=== PATIENT | male | born 1970 | race Caucasian/White ===

== ENCOUNTER 2021-10-03 10:51 | Emergency (ER) | payer SELFPAY ==
[~2021-10-03] VITALS: Ht 167.6 cm; Wt 67.6 kg
[2021-10-03 10:55] VITALS: BP 144/77
--- NOTE | 2021-10-03 11:10 | NUR ---
PT TAKEN TO XR VIA W/C.
--- NOTE | 2021-10-03 11:47 | NUR ---
BIB VIA WHEELCHAIR TO ER BED 6
--- NOTE | 2021-10-03 11:55 | NUR ---
50/M PRESENTS TO ED WITH C/O RIGHT WRIST PAIN. STATES YESTERDAY WHEN GETTING UP FROM HIS W/C HE LOST HIS BALANCE AND HIS RIGHT WRIST GOT CAUGHT IN HIS W/C. PATIENT STATES HE HAS HAD 8/10 THROBBING PAIN THAT WORSENS WITH MOVEMENT EVER SINCE. PATIENT HAS GOOD ROM, EQUAL SENSATION BILATERALLY, CAP REFILL LESS THAN 3 SECONDS. STATES PAIN IS NONRADIATING, DENIES NUMBNESS OR TINGLING.
[2021-10-03] MEDS ORDERED: TRAM50TA1 PO (11:57)
[2021-10-03] MEDS ORDERED: ACETAMINOPHEN EXTRA STRENGTH 500 MG TAB PO ONE (12:00)
[2021-10-03 12:19] VITALS: BP 144/77
--- NOTE | 2021-10-03 12:21 | NUR ---
Patient discharged with v/s stable. Written and verbal after care instructions ABOUT WRIST SPRAIN given and explained. Patient alert, oriented and verbalized understanding of instructions. Wheel Chair Assisted with by caregiver. All questions addressed prior to discharge. ID band removed. Patient advised to follow up with PMD. Rx of TRAMADOL HCL given. Patient educated on indication of medication including possible reaction and side effects. Opportunity to ask questions provided and answered.
== END 2021-10-03 12:19 | disposition home or self-care (01) ==
LOC: MED 10:51
DX: S63.501A Unspecified sprain of right wrist, initial encounter (principal); I12.0 Hypertensive chronic kidney disease with stage 5 chronic kidney disease or end stage renal disease; N18.6 End stage renal disease; Z79.899 Other long term (current) drug therapy; Z98.890 Other specified postprocedural states; W23.0XXA Caught, crushed, jammed, or pinched between moving objects, initial encounter; Y93.89 Activity, other specified; Y92.89 Other specified places as the place of occurrence of the external cause; Y99.8 Other external cause status
CPT/HCPCS: 73110; 99283